=== PATIENT | male | born 1960 | race Caucasian/White ===

== ENCOUNTER 2016-07-12 11:32 | Emergency (ER) | payer BC, OTHER ==
[2016-07-12 11:54] VITALS: BP 149/88; PULSE 80; TEMP 98.2; BMI 31.0
--- NOTE | 2016-07-12 12:17 | PDOC ---
History of Present Illness - General Chief Complaint: Injury Stated Complaint: ?long bone fx LT ANKLE PAIN Time Seen by Provider: 07/12/16 11:56 History Source: Patient Exam Limitations: No Limitations - History of Present Illness Initial Comments: 07/12/16 13:08 CC pain to left ankle and hand post fall on ice today Occurred: reports: just prior to arrival Severity: reports: mild Pain Location: reports: lower extremity, upper extremity Method of Injury: Yes: direct blow, fall Loss of Consciousness: no loss of consciousness Past History - Past Medical History Allergies/Adverse Reactions: Allergies Allergy/AdvReac Type Severity Reaction Status Date / Time No Known Allergies Allergy Verified 07/12/16 11:51 Home Medications: Ambulatory Orders NK [No Known Home Medication] 07/12/16 HTN: Yes Hypercholesterolemia: Yes - Psycho/Social/Smoking Cessation Hx Anxiety: No Suicidal Ideation: No Smoking History: Current every day smoker Have you smoked in the past 12 months: Yes Number of Cigarettes Smoked Daily: 20 Information on smoking cessation initiated: Yes 'Breaking Loose' booklet given: 07/12/16 Hx Alcohol Use: No Drug/Substance Use Hx: No Substance Use Type: None Review of Systems - Review of Systems Constitutional: No: Chills, Fever, Malaise HEENTM: No: Symptoms Reported Respiratory: No: Symptoms reported, Cough Musculoskeletal: Yes: Joint Pain. No: Joint Swelling, Muscle Pain Integumentary: No: Symptoms Reported, Bruising, Erythema Neurological: No: Symptoms reported, Numbness, Paresthesia, Tingling *Physical Exam - Vital Signs Last Vital Signs Temp Pulse Resp BP Pulse Ox 98.2 F 80 18 149/88 100 07/12/16 11:51 07/12/16 11:51 07/12/16 11:51 07/12/16 11:51 07/12/16 11:51 - Physical Exam General Appearance: Yes: Appropriately Dressed. No: Apparent Distress HEENT: negative: TMs Normal, Pharynx Normal Neck: positive: Supple. negative: Tender, Rigid, Lymphadenopathy (R), Lymphadenopathy (L) Respiratory/Chest: positive: Lungs Clear Cardiovascular: positive: Regular Rhythm, Regular Rate Musculoskeletal: positive: Other (tender to lateral mall with STS; able to ambulate 3 steps; also tender left hand at thenar prominence) ED Treatment Course - RADIOLOGY Radiology Studies Ordered: Category Date Time Status ANKLE & FOOT-LEFT* [RAD] Stat Radiology 07/12/16 12:13 Ordered HAND- LEFT [RAD] Stat Radiology 07/12/16 12:13 Ordered Medical Decision Making - Medical Decision Making 07/12/16 12:16 pt refused pain meds at this time 07/12/16 13:11 xray= negative on my reading; nassar dressing applied crutches given *DC/Admit/Observation/Transfer Diagnosis at time of Disposition: Contusion of left hand Qualifiers: Encounter type: initial encounter Qualified Code(s): S60.222A - Contusion of left hand, initial encounter Strain of left ankle Qualifiers: Encounter type: initial encounter Qualified Code(s): S96.912A - Strain of unspecified muscle and tendon at ankle and foot level, left foot, initial encounter - Discharge Dispostion Disposition: HOME Condition at time of disposition: Stable Admit: No - Patient Instructions Additional Instructions: wear splint; use crutches x 3 days; ice today; advil 400mg for pain; elevate ankle - Post Discharge Activity Work/School Note: Back to Work
== END 2016-07-12 13:37 | disposition home or self-care (01) ==
LOC: JERFT 11:32
PROC: 2W3MX1Z Immobilization of Left Lower Extremity using Splint (ICD-10-PCS; principal; 2016-07-12)
DX: S60.222A Contusion of left hand, initial encounter (principal); S96.812A Strain of other specified muscles and tendons at ankle and foot level, left foot, initial encounter; W00.0XXA Fall on same level due to ice and snow, initial encounter; Y93.89 Activity, other specified; Y92.89 Other specified places as the place of occurrence of the external cause; Y99.8 Other external cause status
CPT/HCPCS: 73130-TC-LT; 73610-TC-LT; 73630-TC-LT; 99281-25

== ENCOUNTER 2017-08-05 08:34 | Day surgery (SDC) | payer BC, OTHER ==
[2017-08-01 15:03] VITALS: BMI 30.2
[2017-08-05] MEDS ORDERED: ROPIVACAINE HCL 0.5% 30ML VIAL ONE (09:35)
[2017-08-05] MEDS ORDERED: MIDAZOLAM HCL 2 MG/2 ML SINGLE DOSE VIAL ONE (09:35)
[2017-08-05] MEDS ORDERED: EPINEPHrine 1:1,000 1 MG/1 ML - 30ML VIAL (INJECTION) ONE (09:56)
[2017-08-05] MEDS ORDERED: BUPIVACAINE HCL/PF 2.5 MG/ML - 30 ML VIAL IJ ONE (11:07)
[2017-08-05] MEDS ORDERED: ceFAZolin SODIUM 1 GM VIAL ONE (11:29)
[2017-08-05] MEDS ORDERED: ONDANSETRON 4 MG/2 ML VIAL ONE (11:31)
[2017-08-05] MEDS ORDERED: DEXAMETHASONE SOD PHOSPHATE 4 MG/1 ML VIAL ONE (11:31)
[2017-08-05] MEDS ORDERED: PROPOFOL 20 ML ONE (11:36)
[2017-08-05] MEDS ORDERED: ONDANSETRON 4 MG/2 ML VIAL IVPUSH PRN (12:04)
[2017-08-05] MEDS ORDERED: BUPIVACAINE HCL/PF 0.25% (2.5MG/ML) 10 ML VIAL IJ ONE (12:12)
[2017-08-05] MEDS ORDERED: LACTATED RINGERS SOLUTION 1,000 ML IV SCH (12:15)
[2017-08-05 14:58] VITALS: TEMP 97.9
[2017-08-05 15:03] VITALS: BP 139/86; PULSE 90
--- NOTE | 2017-08-08 15:25 | OP ---
DATE OF OPERATION: 08/05/2017 SURGEON: Anand Cazares MD SALESPERSON SURGICAL APPLIANCES: KELLI Casey PREOPERATIVE DIAGNOSIS: 1. Left shoulder adhesive capsulitis. 2. Left shoulder impingement syndrome. 3. Left shoulder acromioclavicular degenerative joint disease. 4. Left shoulder /synovitis. 5. Left shoulder long head biceps tendon dislocation with tearing. POSTOPERATIVE DIAGNOSIS: 1. Left shoulder adhesive capsulitis. 2. Left shoulder impingement syndrome. 3. Left shoulder acromioclavicular degenerative joint disease. 4. Left shoulder /synovitis. 5. Left shoulder long head biceps tendon dislocation with tearing. PROCEDURE: 1. Left shoulder arthroscopy with lysis and resection of adhesions, CPT code 70042. 2. Left shoulder arthroscopy with subacromial decompression, CPT code 81071. 3. Left shoulder arthroscopy with resection of the subclavicular acromioclavicular joint, CPT code 17984. 4. Left shoulder arthroscopy and debridement, CPT code 09154. 5. Open biceps tendon release. FINDINGS: 1. Glenohumeral joint with synovitis. 2. Antegrade 2-3 cartilage injury to glenoid humerus. 3. Biceps tendon dislocation of its groove with tearing along the tendinous portion. 4. Partial rotator cuff tear 15%. 5. Type 2 acromial anterolateral spurring. 6. Inferior spurs to the subclavicular and acromioclavicular degenerative joint disease. 7. Superior labrum to anteroposterior extension of the biceps tendon. 8. Adhesions of subacromial space, most pronounced laterally. 9. Posterior labral fraying. PROCEDURE: Informed consent was obtained. The patient was taken to the operating room, where the upper extremity was prepped and draped in a sterile fashion. Scalene block was performed by anesthesia. Using standard arthroscopic technique, a posterior incision portal was made, which allowed for introduction of a camera into the glenohumeral joint. Under direct visualization, an anterior incision and portal was made. Extensive and thickened synovitis was debrided. All loose cartilage was debrided. Rotator cuff was identified and evaluated, as were the subacromial and bursal surfaces. The posterior incision portal was redirected to the subacromial space, where a lateral incision and portal was made. Excessive and thickened synovium was removed throughout the subacromial space including the anterior scar tissue, posterior bursal and lateral bursa. The type 2 acromion was converted to a flattened type 1, removing the anterior and lateral spurring. Accessory portal was made at the acromioclavicular joint, removing the inferior spur of the distal clavicle at the acromioclavicular joint allowing for a distal clavicle partial resection. Shoulder was once again reexamined; all impingement was removed. The shoulder was drained. A single suture was placed in all portals and a sterile dressing was placed and the patient was transferred to recovery room without complication. ADDENDUM: Patient's biceps tendon was noted to be dislocating out if its groove and causing tearing along the anterior portion of the subscapularis. A release was performed through an accessory incision, releasing it and allowing it to scar into local soft tissue. This was then debrided down to the superior labrum. ANAND CAZARES M.D. [id number]
--- NOTE | 2017-08-10 16:10 | PATH ---
Surgical Pathology Report Patient Name: CLARY NARAYAN SR Med. Rec. #: [id number] /Age/Gender: 1960 (Age: 57) / M Account: [id number] Location: [facility] AM[facility]UL[facility] Taken: 08/05/2017 Received: 08/05/2017 Reported: 08/10/2017 Physicians: Daryn Stephenson M.D. Specimen(s) Received LEFT SHOULDER SHAVINGS Clinical History Left shoulder impingement Final Diagnosis SHOULDER, LEFT, ARTHROSCOPIC SHAVINGS: FIBROSYNOVIAL TISSUE, CARTILAGE AND SKELETAL MUSCLE. Electronically Signed Alee Preston M.D. Gross Description Received in formalin, labeled "left shoulder shavings," is a 4.5 x 3.2 x 0.4 cm. aggregate of smith-yellow soft tissue fragments. A client care representative portion is submitted in one cassette. /08/08/201708/08/2017
== END 2017-08-05 14:45 | disposition home or self-care (01) ==
LOC: FASU 08:34
PROVIDERS: ATTEND Orthopaedic Surgery
PROC: 0RBK4ZZ Excision of Left Shoulder Joint, Percutaneous Endoscopic Approach (ICD-10-PCS; 2017-08-05)
PROC: 0LS40ZZ Reposition Left Upper Arm Tendon, Open Approach (ICD-10-PCS; 2017-08-05)
PROC: 0PBB4ZZ Excision of Left Clavicle, Percutaneous Endoscopic Approach (ICD-10-PCS; principal; 2017-08-05 10:30)
DX: M75.42 Impingement syndrome of left shoulder (principal); M75.02 Adhesive capsulitis of left shoulder; M19.012 Primary osteoarthritis, left shoulder; M65.812 Other synovitis and tenosynovitis, left shoulder; M24.112 Other articular cartilage disorders, left shoulder; M67.814 Other specified disorders of tendon, left shoulder
CPT/HCPCS: 88304-TC; 94760

== ENCOUNTER 2017-12-23 07:22 | Day surgery (SDC) | payer BC, OTHER ==
[2017-12-21 14:57] VITALS: BMI 29.5
[2017-12-23] MEDS ORDERED: DEXAMETHASONE SOD PHOSPHATE/PF 10 MG/ML SDV ONE (07:48)
[2017-12-23] MEDS ORDERED: BUPIVACAINE HCL/PF (5 MG/ML) 30 ML VIAL IJ ONE (07:49)
[2017-12-23] MEDS ORDERED: MIDAZOLAM HCL 2 MG/2 ML SINGLE DOSE VIAL ONE (07:49)
[2017-12-23] MEDS ORDERED: PROPOFOL 20 ML ONE ×3 (08:55)
[2017-12-23] MEDS ORDERED: DEXAMETHASONE SOD PHOSPHATE 4 MG/1 ML VIAL ONE (09:28)
[2017-12-23] MEDS ORDERED: KETOROLAC TROMETHAMINE 30 MG/1 ML VIAL ONE (09:28)
[2017-12-23] MEDS ORDERED: ceFAZolin SODIUM 1 GM VIAL ONE (09:28)
[2017-12-23] MEDS ORDERED: ONDANSETRON 4 MG/2 ML VIAL ONE (09:28)
[2017-12-23] MEDS ORDERED: LIDOCAINE HCL 1%, 10 MG/ML (20ML VIAL) ONE (10:04)
[2017-12-23] MEDS ORDERED: EPINEPHrine 1:1,000 1 MG/1 ML - 30ML VIAL (INJECTION) ONE (10:04)
[2017-12-23] MEDS ORDERED: LACTATED RINGERS SOLUTION 1,000 ML IV SCH (12:45)
[2017-12-23] MEDS ORDERED: oxyCODONE HCL 5 MG TABLET PO PRN (12:45)
[2017-12-23] MEDS ORDERED: ONDANSETRON 4 MG/2 ML VIAL IVPUSH PRN (12:45)
--- NOTE | 2017-12-23 12:49 | OP ---
DATE OF OPERATION: 12/23/2017 LOCATION: [facility]. SURGEON: Anand Cazares MD ROUTE INSPECTOR: KELLI Casey PREOPERATIVE DIAGNOSES: 1. Left shoulder adhesive capsulitis. 2. Left shoulder impingement syndrome. 3. Left shoulder superior labrum tear [id number] with synovitis. POSTOPERATIVE DIAGNOSES: 1. Left shoulder adhesive capsulitis. 2. Left shoulder impingement syndrome. 3. Left shoulder superior labrum tear [id number] with synovitis. PROCEDURE: 1. Left shoulder arthroscopy with resection of adhesions. CPT code 69191. 2. Left shoulder arthroscopy with subacromial decompression. CPT code 31513. 3. Left should arthroscopy with debridement. FINDINGS: 1. Evidence of previous arthroscopy. 2. Thickened scar tissue most pronounced across the glenohumeral joint with extensive synovitis and anterior scar tissue. 3. Previous release of biceps tendon. 4. Partial rotator cuff tear, 10%. 5. Previous subacromial decompression with minor spurring anteriorly. 6. Scar tissue subacromial space. 7. Posterior labral fraying. PROCEDURE: Informed consent was obtained. The patient was taken to the operating room, where the upper extremity was prepped and draped in a sterile fashion. A scalene block was performed by Anesthesia. Manipulation under anesthesia was allowed for full range of motion. Using standard arthroscopic technique, a posterior incision portal was made, which allowed for introduction of a camera into the glenohumeral joint. Under direct visualization, an anterior incision and portal was made. Extensive and thickened synovitis was debrided. Fraying of the labrum was debrided and the superior labrum from anterior to posterior was identified with all loose areas debrided. Any labral tears were taken to a stable rim including identified SLAP lesions. All loose cartilage was debrided. The rotator cuff was identified and evaluated, as were the subacromial and bursal surfaces. The posterior incision portal was redirected to the subacromial space, where a lateral incision and portal was made. Excessive and thickened synovium was removed throughout the subacromial space including the anterior scar tissue, posterior bursa and lateral bursa. The type 2 acromion was converted to a flattened type 1, removing the anterior and lateral spurring. An accessory portal was made at the acromioclavicular joint, removing the inferior spur of the distal clavicle at the acromioclavicular joint allowing for a distal clavicle partial resection. Please note that 1cm of undersurface of clavicle was removed extending into the intra articular portion and through an accessory portal. The shoulder was once again reexamined and all impingement was removed. The shoulder was drained. A single suture was placed in all portals and a sterile dressing was placed. The patient was transferred to the recovery room without complication. The previous clavicle resection had no reoccurrence and minor scar tissue was debrided from the area without removal of bone. Also, note that patient had extensive scar tissue along the glenohumeral surface and this was debrided. Prior to surgery, passive elevation to 90, external rotation to 30, and internal rotation to 30. Post manipulation passive elevation to 180, external rotation to 80, and internal rotation to 85. ANAND CAZARES M.D. [id number]
[2017-12-23 13:02] VITALS: BP 121/80; PULSE 65; TEMP 97.9
--- NOTE | 2017-12-26 11:55 | PATH ---
Surgical Pathology Report Patient Name: CLARY NARAYAN SR [facility]. Rec. #: [id number] /Age/Gender: 1960 (Age: 57) / M Account: [id number] Location: [facility] AMBULATORY Taken: 12/23/2017 Received: 12/23/2017 Reported: 12/26/2017 Physicians: Daryn Stephenson M.D. Specimen(s) Received LEFT SHOULDER SHAVINGS Clinical History Impingement syndrome left shoulder, partial rotator cuff Final Diagnosis LEFT SHOULDER, SHAVINGS: RECENT BLOOD CLOT, SCANTY FIBROCONNECTIVE TISSUE, AND FOCAL ACUTE INFLAMMATORY EXUDATE. Electronically Signed Lizet Rachel M.D. Gross Description Received in formalin labeled "left shoulder shavings," is a 2.5 x 1.0 x 0.2 cm aggregate of red-brown blood clot admixed with minimal smith-yellow soft tissue fragments. The formalin is filtered and the specimen is entirely submitted in one cassette. /12/23/2017 saudi/12/23/2017
== END 2017-12-23 13:02 | disposition home or self-care (01) ==
LOC: FASU 07:22
PROVIDERS: ATTEND Orthopaedic Surgery
PROC: 0RBK4ZZ Excision of Left Shoulder Joint, Percutaneous Endoscopic Approach (ICD-10-PCS; principal; 2017-12-23 10:00)
DX: M75.02 Adhesive capsulitis of left shoulder (principal); M75.42 Impingement syndrome of left shoulder; M65.812 Other synovitis and tenosynovitis, left shoulder
CPT/HCPCS: 88304-TC; 94760

== ENCOUNTER 2018-03-22 09:56 | Emergency (ER) | payer BC ==
[2018-03-22 10:00] VITALS: TEMP 98.5; BMI 29.5
[2018-03-22] MEDS ORDERED: SODIUM CHLORIDE 0.9% 1000 ML INFUS.BAG IV ONE (10:15)
[2018-03-22] MEDS ORDERED: METOCLOPRAMIDE HCL INJECTION 10 MG/2 ML VIAL IVPUSH ONE (10:15)
[2018-03-22] MEDS ORDERED: ACETAMINOPHEN 1000 MG/100 ML VIAL (NON FORMULARY) IVPB ONE (10:16)
[2018-03-22] MEDS ORDERED: ACETAMINOPHEN INJECTION 100 ML IVPB ONE (10:24)
[2018-03-22 10:29] LABS: BASO % 0.7 % (0-2.0); EOS % 2.5 % (0-4.5); HEMATOCRIT 42.7 % (35.4-49); HEMOGLOBIN 14.1 GM/dl (11.7-16.9); LYMPH % 21.4 % (8-40); MCH 30.5 pg (25.7-33.7); MCHC 32.9 g/dl (32.0-35.9); MEAN CELL VOLUME 92.5 fl (80-96); MEAN PLT VOLUME 7.7 fl (7.5-11.1); MONO % 5.3 % (3.8-10.2); NEUT % 70.1 % (42.8-82.8); PLATELET COUNT 338 K/MM3 (134-434); RBC 4.61 M/mm3 (4.00-5.60); WHITE BLOOD COUNT 9.7 K/mm3 (4.0-10.8)
--- NOTE | 2018-03-22 10:36 | PDOC ---
History of Present Illness - General Chief Complaint: Headache Stated Complaint: HEADACHE History Source: Patient Exam Limitations: No Limitations - History of Present Illness Initial Comments: 03/22/18 10:31 57 yo male h/o htn, here with c/o headache and slurred speech, weakness unsteady gait for several weeks. pt states he has had difficulty with gait " legs like weight" for several years" but recent headaches and speech changes have been new last few weeks. did see a nuerologist. dR. Lee, at [facility], who ordered a head ct and an MRI. was told that they were nondiagnostic. usually headache is right sided, parietal radiating back to occipital region now today it is on the left side. no n/v no change to vision . no ho migraines. did have recent blood work, unsure of results. no f/c. no h/o etoh abuse. no trauma. Past History - Past Medical History Allergies/Adverse Reactions: Allergies Allergy/AdvReac Type Severity Reaction Status Date / Time No Known Drug Allergies Allergy Verified 03/22/18 09:56 Home Medications: Ambulatory Orders Atorvastatin Ca [Lipitor] 20 mg PO HS 04/02/17 Lisinopril 10 mg PO DAILY 04/02/17 Aspirin [Aspirin EC] 81 mg PO DAILY 08/01/17 Franklin-3/Dha/Epa/Fish Oil [Franklin 3 500 Softgel] 1 each PO DAILY 08/01/17 Acetaminophen/Caffeine/Butalb [Fioricet -] 1 tab PO Q6H PRN #28 tablet MDD 4 Ibuprofen [Motrin -] 600 mg PO TID PRN #90 tablet MDD 3 03/22/18 Anemia: No Asthma: No Cancer: No Cardiac Disorders: No CVA: No COPD: Yes (DOESN'T USE INHALERS) CHF: No Dementia: No Diabetes: No GI Disorders: No Disorders: No HTN: Yes Hypercholesterolemia: Yes Liver Disease: No Seizures: No Thyroid Disease: No - Surgical History Abdominal Surgery: No Appendectomy: No Cardiac Surgery: No Cholecystectomy: No Lung Surgery: Yes (1979 DURING RIB RESECTION,HAD COLLAPSED LUNG-OSMIOPHILIC GRANULOMA REMOVED) Neurologic Surgery: No Orthopedic Surgery: Yes (RIGHT SHOULDER SX 2013) - Suicide/Smoking/Psychosocial Hx Smoking History: Current every day smoker Have you smoked in the past 12 months: Yes Number of Cigarettes Smoked Daily: 20 Information on smoking cessation initiated: Yes 'Breaking Loose' booklet given: 03/22/18 Hx Alcohol Use: No Drug/Substance Use Hx: Yes Substance Use Type: Alcohol Hx Substance Use Treatment: No Review of Systems - Review of Systems Constitutional: No: Chills, Diaphoresis, Fever HEENTM: No: Eye Pain Respiratory: No: Cough, Orthopnea, Shortness of Breath Cardiac (ROS): No: Chest Pain, Edema Integumentary: No: Bruising, Change in Color Neurological: Yes: Headache, Weakness, Ataxia All Other Systems: Reviewed and Negative *Physical Exam - Vital Signs Last Vital Signs Temp Pulse Resp BP Pulse Ox 98.5 F 102 H 16 161/115 H 99 03/22/18 09:56 03/22/18 09:56 03/22/18 09:56 03/22/18 09:56 03/22/18 09:56 - Physical Exam Comments: 03/22/18 10:34 awake alert lungs clear bilaterally heart rrr nomrg abd soft nt obese. nuero speech slow, but clear. facies mild right eyelid droop, eomi. perrl. otherwise CN intact. . finger to nose some dysdiadokinesia right > left. negative romberg. gait normal. strength 5/5. skin warm and dry 03/22/18 11:42 ED Treatment Course - LABORATORY CBC & Chemistry Diagram: 03/22/18 10:23 03/22/18 10:23 - RADIOLOGY Radiology Studies Ordered: Category Date Time Status HEAD CT WITHOUT CONTRAST [CT] Stat CT Scan 03/22/18 10:31 Ordered Medical Decision Making - Medical Decision Making 03/22/18 10:36 differential diagnosis: hyponatremia, anemia, other electrolyte abnormality, sxs hypertension, folate difficiency, syphillis, cva less likely as pt had recent mri. due to change in headache, elevated bp, will order head ct. iv hydration, reglan tylenol reassess. will try to contact pt pcp and nuerologist for more information per pt consent regardign recent mri. 03/22/18 11:22 pt labs unremarkable. tsh lyme and rpr pending. ct head no acute disease process. pt with tearing in left eye, consider cluster headache? will place on 2 L oxygen. 03/22/18 11:41 d/w pt neurologist dr. delong who states the mri was negative for anything acute, only showing microvascular ischemic changes. lp discussed, pt no white count no fever. still pending cervical spine mri however anatomically would not explain pt speech changes. or droopy eye lid. *DC/Admit/Observation/Transfer Diagnosis at time of Disposition: Headache - Discharge Dispostion Disposition: HOME Condition at time of disposition: Improved - Prescriptions Prescriptions: Acetaminophen/Caffeine/Butalb [Fioricet -] 1 tab PO Q6H PRN #28 tablet MDD 4 PRN Reason: Pain Ibuprofen [Motrin -] 600 mg PO TID PRN #90 tablet MDD 3 PRN Reason: Pain - Referrals - Patient Instructions Printed Discharge Instructions: Cluster Headache Additional Instructions: you should follow up with your neurologist call dr. Macdonald to schedule. you may also folllow up with dr. reyes, see referral infomration for followup and call to schedule. you can take fiorecet for severe headache, every 6 hrs as needed. you can also take motrin 600 mg every 8 hrs as needed for pain. return for any concern or worsening symptoms arm or leg weakness or change in mental status. - Post Discharge Activity
[2018-03-22 10:53] LABS: ALK PHOS 54 U/L (32-92); ANION GAP 6 MMOL/L (8-16); BILIRUBIN,TOTAL 0.4 mg/dl (0.2-1.0); BLOOD UREA NITROGEN 15 mg/dl (7-18); CHLORIDE 102 mmol/L (98-107); CO2 25 mmol/L (22-28); CREATININE 0.9 mg/dl (0.6-1.3); GLUCOSE,RANDOM 111 mg/dl (74-106); POTASSIUM 3.9 mmol/L (3.5-5.1); SGOT/AST 24 U/L (10-42); SGPT/ALT 29 U/L (10-40); SODIUM 133 mmol/L (136-145); TOT PROT 6.9 g/dl (6.4-8.3)
[2018-03-22] MEDS ORDERED: KETOROLAC TROMETHAMINE 15 MG/ML VIAL IVPUSH ONE (11:23)
[2018-03-22] MEDS ORDERED: KETOROLAC TROMETHAMINE 15 MG/ML VIAL ONE (11:25)
[2018-03-22] MEDS ORDERED: ACETAMINOPHEN/CAFFEINE/BUTALBITAL 1 TAB PO ONE (11:40)
[2018-03-22] MEDS ORDERED: ACETAMINOPHEN/CAFFEINE/BUTALBITAL 1 TAB ONE (11:41)
[2018-03-22 12:17] VITALS: BP 139/90; PULSE 79
== END 2018-03-22 12:17 | disposition home or self-care (01) ==
LOC: FER 09:56
PROC: 3E0337Z Introduction of Electrolytic and Water Balance Substance into Peripheral Vein, Percutaneous Approach (ICD-10-PCS; principal; 2018-03-22)
PROC: 3E033NZ Introduction of Analgesics, Hypnotics, Sedatives into Peripheral Vein, Percutaneous Approach (ICD-10-PCS; 2018-03-22)
PROC: 3E033GC Introduction of Other Therapeutic Substance into Peripheral Vein, Percutaneous Approach (ICD-10-PCS; 2018-03-22)
PROC: 3E0333Z Introduction of Anti-inflammatory into Peripheral Vein, Percutaneous Approach (ICD-10-PCS; 2018-03-22)
DX: R26.81 Unsteadiness on feet (principal); R51 Headache
CPT/HCPCS: 36415; 70450-TC; 80053; 82746; 84443; 85025; 86593; 86618; 99283-25; J0131; J7030

== ENCOUNTER 2020-07-12 10:23 | Emergency (ER) | payer BC, OTHER ==
[2020-07-12 10:39] VITALS: TEMP 97.8; BMI 35.4
[2020-07-12 11:32] LABS: NEUT % 63.4 % (42.8-82.8)
[2020-07-12 11:34] LABS: BASO % 2.5 % (0-2.0); EOS % 3.4 % (0-4.5); HEMOGLOBIN 13.5 GM/dl (11.7-16.9); LYMPH % 23.9 % (8-40); MCH 30.9 pg (25.7-33.7); MCHC 33.6 g/dl (32.0-35.9); MEAN CELL VOLUME 91.7 fl (80-96); MEAN PLT VOLUME 7.6 fl (7.5-11.1); MONO % 6.8 % (3.8-10.2); PLATELET COUNT 284 K/MM3 (134-434); RBC 4.36 M/mm3 (4.00-5.60); RDW 11.8 % (11.9-15.9); WHITE BLOOD COUNT 6.2 K/mm3 (4.0-10.8)
[2020-07-12 11:37] LABS: ACTIVATED PTT 28.1 SECONDS (25.2-36.5)
[2020-07-12 11:40] LABS: ALBUMIN 4.3 g/dl (3.4-5.0); ALK PHOS 43 U/L (45-117); ANION GAP 11 MMOL/L (8-16); BILIRUBIN,TOTAL 0.4 mg/dl (0.2-1); CALCIUM 8.8 mg/dl (8.5-10); CHLORIDE 103 mmol/L (98-107); CO2 21 mmol/L (21-32); GLUCOSE,RANDOM 151 mg/dl (74-106); LDH 129 U/L (84-246); POTASSIUM 3.8 mmol/L (3.5-5.1); SGOT/AST 29 U/L (15-37); SGPT/ALT 38 U/L (13-61); SODIUM 135 mmol/L (136-145); TOT PROT 6.9 g/dl (6.4-8.2)
[2020-07-12 11:47] LABS: INR 1.08 (0.82-1.09)
[2020-07-12] MEDS ORDERED: ALBUTEROL SO4 2.5/IPRATROPIUM 0.5 INH SOL 3 ML VIAL.NEB. NEB ONE ×2 (11:54→12:02)
[2020-07-12] MEDS ORDERED: LACTATED RINGERS SOLUTION 1,000 ML/1,000 ML INFUS.BAG IV SCH (12:00)
[2020-07-12 15:35] VITALS: BP 122/69; PULSE 88
== END 2020-07-12 15:35 | disposition home or self-care (01) ==
LOC: FER 10:23
PROC: 3E0F7GC Introduction of Other Therapeutic Substance into Respiratory Tract, Via Natural or Artificial Opening (ICD-10-PCS; principal; 2020-07-12)
DX: R06.00 Dyspnea, unspecified (principal)
CPT/HCPCS: 36415; 71045-TC-FY; 80053; 81003; 81015; 82550; 82728; 83605; 83615; 83880; 84484; 85025; 85379; 85610; 85730; 86140; 87040; 87086; 87804; 93005; 99285-25; C9803; U0003

== ENCOUNTER 2020-10-08 13:15 | Emergency (ER) | payer BC, OTHER ==
[2020-10-08 13:34] VITALS: TEMP 98.5; BMI 31.0
[2020-10-08] MEDS ORDERED: ACETAMINOPHEN 325 MG TABLET (FP) PO ONE (14:41)
[2020-10-08] MEDS ORDERED: ACETAMINOPHEN 325 MG TABLET (FP) ONE (14:46)
[2020-10-08] MEDS ORDERED: IBUPROFEN 400 MG TABLET (FP) PO ONE ×2 (14:46)
[2020-10-08 16:32] LABS: BASO % 1.2 % (0-2.0); EOS % 4.2 % (0-4.5); HEMATOCRIT 35.7 % (35.4-49); LYMPH % 22.3 % (8-40); MCHC 33.7 g/dl (32.0-35.9); MEAN CELL VOLUME 91.9 fl (80-96); MONO % 4.9 % (3.8-10.2); NEUT % 67.4 % (42.8-82.8); PLATELET COUNT 261 K/MM3 (134-434); RBC 3.88 M/mm3 (4.00-5.60); RDW 12.9 % (11.9-15.9); WHITE BLOOD COUNT 8.7 K/mm3 (4.0-10.0)
[2020-10-08 16:57] LABS: CHLORIDE 105 mmol/L (98-107); SODIUM 136 mmol/L (136-145)
[2020-10-08 16:59] LABS: CALCIUM 8.7 mg/dL (8.5-10.1)
[2020-10-08 17:00] LABS: ALBUMIN 3.6 g/dl (3.4-5.0); ANION GAP 7 MMOL/L (8-16); BLOOD UREA NITROGEN 17.6 mg/dL (7-18); CO2 24 mmol/L (21-32); GLUCOSE,RANDOM 187 mg/dL (74-106)
[2020-10-08 17:03] LABS: CREATININE 0.9 mg/dL (0.55-1.3); SGOT/AST 11 U/L (15-37); SGPT/ALT 25 U/L (13-61)
[2020-10-08 17:05] LABS: TOT PROT 6.6 g/dl (6.4-8.2)
[2020-10-08 17:06] LABS: ALK PHOS 57 U/L (45-117)
[2020-10-08 17:08] LABS: BILIRUBIN,TOTAL 0.3 mg/dL (0.2-1)
[2020-10-08 18:56] VITALS: BP 116/69; PULSE 83
== END 2020-10-08 20:42 | disposition home or self-care (01) ==
LOC: JERFT 13:15
DX: M54.6 Pain in thoracic spine (principal)
CPT/HCPCS: 36415; 71046-TC-FY; 80053; 84484; 85025; 93005; 93010; 99285-25

== ENCOUNTER 2020-10-15 16:45 | Emergency (ER) | payer BC, OTHER ==
[2020-10-15 16:54] VITALS: BMI 31.0
[2020-10-15 18:39] LABS: BASO % 0.9 % (0-2.0); EOS % 3.8 % (0-4.5); HEMOGLOBIN 12.6 GM/dL (11.7-16.9); LYMPH % 23.7 % (8-40); MEAN CELL VOLUME 91.1 fl (80-96); MEAN PLT VOLUME 7.8 fl (7.5-11.1); MONO % 7.8 % (3.8-10.2); NEUT % 63.8 % (42.8-82.8); PLATELET COUNT 347 K/MM3 (134-434); RBC 4.06 M/mm3 (4.00-5.60); RDW 12.4 % (11.9-15.9)
[2020-10-15 19:03] LABS: ALBUMIN 4.1 g/dl (3.4-5.0); BLOOD UREA NITROGEN 22.4 mg/dL (7-18); CALCIUM 9.6 mg/dL (8.5-10.1)
[2020-10-15 19:06] LABS: CREATININE 0.9 mg/dL (0.55-1.3)
[2020-10-15 19:08] LABS: BILIRUBIN,TOTAL 0.3 mg/dL (0.2-1); TOT PROT 7.3 g/dl (6.4-8.2)
[2020-10-15 19:37] LABS: N-TERMINAL BNP 9.4 pg/ml (5-125)
[2020-10-15 22:11] VITALS: BP 136/78; PULSE 76; TEMP 98.6
== END 2020-10-15 21:45 | disposition home or self-care (01) ==
LOC: JER 16:45
DX: R91.1 Solitary pulmonary nodule (principal); R60.9 Edema, unspecified; J44.9 Chronic obstructive pulmonary disease, unspecified
CPT/HCPCS: 36415; 71275-TC; 80053; 83880; 85025; 93970-TC; 99285-25; Q9967

== ENCOUNTER 2021-01-10 11:19 | Emergency (ER) | payer BC, OTHER ==
[2021-01-10 11:26] VITALS: BP 126/80; PULSE 102; TEMP 98; BMI 31.7
[2021-01-10] MEDS ORDERED: ACETAMINOPHEN 500 MG TABLET (FP) PO ONE (11:31)
[2021-01-10] MEDS ORDERED: ACETAMINOPHEN 325 MG TABLET (FP) ONE (12:23)
[2021-01-10] MEDS ORDERED: diazePAM 5 MG TABLET PO ONE (13:33)
[2021-01-10] MEDS ORDERED: LIDOCAINE 5% TOPICAL PATCH TP ONE (13:33)
[2021-01-10] MEDS ORDERED: LIDOCAINE 5% TOPICAL PATCH ONE (13:42)
[2021-01-10] MEDS ORDERED: diazePAM 5 MG TABLET ONE (13:42)
[2021-01-10 15:06] LABS: URINE APPEARANCE CLEAR; URINE BILIRUBIN NEGATIVE (NEGATIVE); URINE COLOR YELLOW; URINE GLUCOSE (UA) NEGATIVE (NEGATIVE); URINE KETONE NEGATIVE (NEGATIVE); URINE LEUK ESTERASE NEGATIVE (NEGATIVE); URINE NITRITE NEGATIVE (NEGATIVE); URINE PROTEIN NEGATIVE (NEGATIVE); URINE UROBILINOGEN 0.2 mg/dL (0.2-1.0)
[2021-01-10 16:39] LABS: BASO % 0.6 % (0-2.0); EOS % 1.9 % (0-4.5); HEMATOCRIT 34.7 % (35.4-49); HEMOGLOBIN 12.1 GM/dL (11.7-16.9); LYMPH % 18.2 % (8-40); MCHC 34.8 g/dl (32.0-35.9); MEAN CELL VOLUME 89.2 fl (80-96); MEAN PLT VOLUME 7.3 fl (7.5-11.1); MONO % 7.6 % (3.8-10.2); NEUT % 71.7 % (42.8-82.8); PLATELET COUNT 280 10^3/uL (134-434); RBC 3.89 M/mm3 (4.00-5.60); RDW 13.5 % (11.9-15.9); WHITE BLOOD COUNT 9.4 K/mm3 (4.0-10.0)
[2021-01-10 17:00] LABS: CHLORIDE 102 mmol/L (98-107); SODIUM 136 mmol/L (136-145)
[2021-01-10 17:02] LABS: ALBUMIN 4.1 g/dl (3.4-5.0); ANION GAP 9 MMOL/L (8-16); BLOOD UREA NITROGEN 20.5 mg/dL (7-18); CALCIUM 8.6 mg/dL (8.5-10.1); CO2 26 mmol/L (21-32)
[2021-01-10 17:03] LABS: GLUCOSE,RANDOM 109 mg/dL (74-106)
[2021-01-10 17:05] LABS: SGOT/AST 20 U/L (15-37); SGPT/ALT 38 U/L (13-61)
[2021-01-10 17:06] LABS: CREATININE 0.9 mg/dL (0.55-1.3)
[2021-01-10 17:07] LABS: BILIRUBIN,TOTAL 0.4 mg/dL (0.2-1); TOT PROT 6.9 g/dl (6.4-8.2)
[2021-01-10 17:08] LABS: ALK PHOS 51 U/L (45-117)
[2021-01-10 17:10] LABS: N-TERMINAL BNP 45.6 pg/ml (5-125)
[2021-01-10] MEDS ORDERED: LIDOCAINE PATCH REMOVAL MC SCH (22:00)
== END 2021-01-10 17:29 | disposition home or self-care (01) ==
LOC: JER 11:19
DX: M54.6 Pain in thoracic spine (principal); G89.29 Other chronic pain
CPT/HCPCS: 36415; 71046-TC-FY; 80053; 81003; 82550; 82553; 83880; 84484; 85025; 87086; 93005; 93010; 99284-25; C9803; U0003; U0005

== ENCOUNTER 2021-01-11 08:40 | Inpatient (IN) | payer BC, OTHER ==
[2021-01-11 08:50] VITALS: BMI 31.7
[2021-01-11] MEDS ORDERED: KETOROLAC TROMETHAMINE 30 MG/1 ML VIAL IM ONE ×2 (10:06→14:00)
[2021-01-11] MEDS ORDERED: LIDOCAINE 5% TOPICAL PATCH TP ONE (10:07)
[2021-01-11] MEDS ORDERED: KETOROLAC TROMETHAMINE 30 MG/1 ML VIAL ONE (10:35)
[2021-01-11] MEDS ORDERED: LIDOCAINE 5% TOPICAL PATCH ONE (10:35)
[2021-01-11] MEDS ORDERED: AZITHROMYCIN IVPB 500 MG in DEXTROSE 5%-WATER - 250 ML IVPB ONE (11:43)
[2021-01-11] MEDS ORDERED: CEFTRIAXONE 1,000 MG in DEXTROSE 5%-WATER - 50 ML IVPB ONE (11:43)
[2021-01-11 11:44] LABS: ARTERIAL BLD GAS O2 SATURATION 94.8 % (95-98); ARTERIAL BLOOD GAS BASE EXCESS -2.2 mmol/L (-2-2); ARTERIAL BLOOD GAS PO2 75.1 mmHg (80-100); ARTERIAL BLOOD GAS pH 7.375 (7.350-7.450)
[2021-01-11 11:45] LABS: ALLENS TEST POSITIVE
[2021-01-11] MEDS ORDERED: CEFTRIAXONE 1 GM/50 ML BAG ONE (12:32)
[2021-01-11] MEDS ORDERED: AZITHROMYCIN IVPB 500 MG/250 ML BAG IVPB ONE (12:33)
[2021-01-11 12:35] LABS: BASO % 0.6 % (0-2.0); EOS % 0.5 % (0-4.5); HEMATOCRIT 34.9 % (35.4-49); HEMOGLOBIN 12.1 GM/dL (11.7-16.9); LYMPH % 12.9 % (8-40); MCH 31.5 pg (25.7-33.7); MCHC 34.6 g/dl (32.0-35.9); MEAN PLT VOLUME 7.7 fl (7.5-11.1); MONO % 4.9 % (3.8-10.2); NEUT % 81.1 % (42.8-82.8); PLATELET COUNT 283 10^3/uL (134-434); RBC 3.83 M/mm3 (4.00-5.60); RDW 13.7 % (11.9-15.9); WHITE BLOOD COUNT 8.7 K/mm3 (4.0-10.0)
[2021-01-11 12:55] LABS: CALCIUM 8.9 mg/dL (8.5-10.1)
[2021-01-11 12:56] LABS: ALBUMIN 4.3 g/dl (3.4-5.0); BLOOD UREA NITROGEN 32.7 mg/dL (7-18)
[2021-01-11 12:59] LABS: CREATININE 1.1 mg/dL (0.55-1.3)
[2021-01-11 13:01] LABS: BILIRUBIN,TOTAL 0.4 mg/dL (0.2-1); TOT PROT 7.5 g/dl (6.4-8.2)
[2021-01-11] MEDS ORDERED: KETOROLAC TROMETHAMINE 15 MG/ML VIAL IVPUSH ONE (14:09)
[2021-01-11] MEDS ORDERED: KETOROLAC TROMETHAMINE 15 MG/ML VIAL ONE (15:25)
[2021-01-11] MEDS ORDERED: ALBUTEROL SO4 HFA INHALER IH PRN (16:26)
[2021-01-11] MEDS: SODIUM CHLORIDE 1,000 ML IV SCH (20:05)
[2021-01-11] MEDS ORDERED: HEPARIN NA (PORCINE) 5,000 UNITS/ML 1ML VIAL SQ SCH (22:00)
[2021-01-11] MEDS ORDERED: LIDOCAINE PATCH REMOVAL MC ONE (22:00)
[2021-01-12] MEDS ORDERED: KETOROLAC TROMETHAMINE 30 MG/1 ML VIAL IVPUSH ONE (05:50)
[2021-01-12 09:08] LABS: HEMATOCRIT 33.2 % (35.4-49); HEMOGLOBIN 11.4 GM/dL (11.7-16.9); MCH 31.2 pg (25.7-33.7); MCHC 34.5 g/dl (32.0-35.9); MEAN CELL VOLUME 90.5 fl (80-96); MEAN PLT VOLUME 7.8 fl (7.5-11.1); PLATELET COUNT 256 10^3/uL (134-434); RBC 3.67 M/mm3 (4.00-5.60); RDW 13.4 % (11.9-15.9)
[2021-01-12] MEDS ORDERED: DEXTROSE 5%-WATER - 50 ML IVPB ONE (09:20)
[2021-01-12] MEDS ORDERED: cefTRIAXone SODIUM 1 GM VIAL ONE (09:20)
[2021-01-12] MEDS: ENOXAPARIN NA (PORCINE) 40 MG/0.4 ML DISP.SYRIN SQ SCH (09:23)
[2021-01-12] MEDS: LIDOCAINE 5% TOPICAL PATCH TP SCH (09:23)
[2021-01-12] MEDS: CEFTRIAXONE 1 GM in DEXTROSE 5%-WATER - 50 ML IVPB SCH (09:23)
[2021-01-12] MEDS: TAMSULOSIN HCL 0.4 MG CAP PO SCH (09:28)
[2021-01-12] MEDS: FINASTERIDE 5 MG TABLET (FP) PO SCH (09:28)
[2021-01-12] MEDS: ACETAMINOPHEN 325 MG TABLET (FP) PO SCH ×3 (09:28→21:10)
[2021-01-12 09:38] LABS: BLOOD UREA NITROGEN 28.9 mg/dL (7-18)
[2021-01-12] MEDS: LISINOPRIL 20 MG TABLET PO SCH (11:54)
[2021-01-12] MEDS: AZITHROMYCIN IVPB 500 MG/250 ML BAG IVPB SCH (11:55)
[2021-01-12] MEDS: BACLOFEN 10 MG TABLET (FP) PO SCH ×2 (14:47→21:18)
[2021-01-12] MEDS ORDERED: ONDANSETRON 4 MG/2 ML VIAL IVPUSH PRN (16:00)
[2021-01-12] MEDS: ATORVASTATIN CA 10 MG TABLET (FP) PO SCH (21:18)
[2021-01-12] MEDS: diazePAM 2 MG TABLET PO SCH (21:18)
[2021-01-12] MEDS: LIDOCAINE PATCH REMOVAL MC SCH (21:18)
[2021-01-12] MEDS: SODIUM CHLORIDE 1,000 ML IV SCH (21:20)
[2021-01-13] MEDS: ACETAMINOPHEN 325 MG TABLET (FP) PO SCH ×4 (02:08→21:30)
[2021-01-13] MEDS: BACLOFEN 10 MG TABLET (FP) PO SCH ×4 (06:07→21:35)
[2021-01-13] MEDS ORDERED: PT OWN MED DRAWER 7, Y5N ONE ×2 (07:01→21:10)
[2021-01-13] MEDS: TAMSULOSIN HCL 0.4 MG CAP PO SCH (08:46)
[2021-01-13 09:03] LABS: BASO % 0.7 % (0-2.0); EOS % 3.3 % (0-4.5); HEMATOCRIT 31.7 % (35.4-49); LYMPH % 19.7 % (8-40); MCH 31.2 pg (25.7-33.7); MCHC 34.6 g/dl (32.0-35.9); MEAN CELL VOLUME 90.3 fl (80-96); MEAN PLT VOLUME 7.3 fl (7.5-11.1); MONO % 7.5 % (3.8-10.2); NEUT % 68.8 % (42.8-82.8); PLATELET COUNT 234 10^3/uL (134-434); RBC 3.51 M/mm3 (4.00-5.60); RDW 13.5 % (11.9-15.9); WHITE BLOOD COUNT 7.7 K/mm3 (4.0-10.0)
[2021-01-13 09:34] LABS: CALCIUM 8.1 mg/dL (8.5-10.1)
[2021-01-13 09:35] LABS: BLOOD UREA NITROGEN 19.5 mg/dL (7-18); MAGNESIUM 2.3 mg/dL (1.8-2.4)
[2021-01-13 09:38] LABS: CREATININE 0.8 mg/dL (0.55-1.3)
[2021-01-13 09:39] LABS: TOT PROT 5.7 g/dl (6.4-8.2)
[2021-01-13] MEDS ORDERED: cefTRIAXone SODIUM 1 GM VIAL ONE (09:39)
[2021-01-13] MEDS ORDERED: DEXTROSE 5%-WATER - 50 ML IVPB ONE (09:39)
[2021-01-13 09:42] LABS: BILIRUBIN,TOTAL 0.3 mg/dL (0.2-1)
[2021-01-13 09:48] LABS: ALBUMIN 3.2 g/dl (3.4-5.0)
[2021-01-13] MEDS: LIDOCAINE 5% TOPICAL PATCH TP SCH (10:05)
[2021-01-13] MEDS: FINASTERIDE 5 MG TABLET (FP) PO SCH (10:05)
[2021-01-13] MEDS: LISINOPRIL 20 MG TABLET PO SCH (10:05)
[2021-01-13] MEDS: CEFTRIAXONE 1 GM in DEXTROSE 5%-WATER - 50 ML IVPB SCH (10:06)
[2021-01-13] MEDS: ENOXAPARIN NA (PORCINE) 40 MG/0.4 ML DISP.SYRIN SQ SCH (10:06)
[2021-01-13] MEDS: AZITHROMYCIN IVPB 500 MG/250 ML BAG IVPB SCH (10:08)
[2021-01-13] MEDS: SODIUM CHLORIDE 1,000 ML IV SCH (17:25)
[2021-01-13] MEDS: LIDOCAINE PATCH REMOVAL MC SCH (21:35)
[2021-01-13] MEDS: ATORVASTATIN CA 10 MG TABLET (FP) PO SCH (21:35)
[2021-01-13] MEDS: diazePAM 2 MG TABLET PO SCH (21:35)
[2021-01-13] MEDS: QUINIDINE PO SCH ×2 (21:35→21:37)
[2021-01-13] MEDS: DEXTROMETHORPHAN PO SCH ×2 (21:35→21:37)
[2021-01-14] MEDS: ACETAMINOPHEN 325 MG TABLET (FP) PO SCH ×4 (02:05→21:35)
[2021-01-14] MEDS: BACLOFEN 10 MG TABLET (FP) PO SCH ×3 (06:13→21:35)
[2021-01-14 08:52] LABS: BASO % 0.9 % (0-2.0); EOS % 4.3 % (0-4.5); HEMATOCRIT 31.2 % (35.4-49); HEMOGLOBIN 10.6 GM/dL (11.7-16.9); LYMPH % 22.1 % (8-40); MCH 30.8 pg (25.7-33.7); MEAN CELL VOLUME 90.5 fl (80-96); MEAN PLT VOLUME 7.4 fl (7.5-11.1); MONO % 7.9 % (3.8-10.2); NEUT % 64.8 % (42.8-82.8); PLATELET COUNT 239 10^3/uL (134-434); RBC 3.45 M/mm3 (4.00-5.60); RDW 13.4 % (11.9-15.9); WHITE BLOOD COUNT 6.1 K/mm3 (4.0-10.0)
[2021-01-14] MEDS: TAMSULOSIN HCL 0.4 MG CAP PO SCH (08:55)
[2021-01-14 09:25] LABS: ALBUMIN 3.2 g/dl (3.4-5.0); BLOOD UREA NITROGEN 17.2 mg/dL (7-18); CALCIUM 8.2 mg/dL (8.5-10.1); MAGNESIUM 2.1 mg/dL (1.8-2.4)
[2021-01-14 09:28] LABS: CREATININE 0.8 mg/dL (0.55-1.3)
[2021-01-14 09:29] LABS: BILIRUBIN,TOTAL 0.3 mg/dL (0.2-1); TOT PROT 5.6 g/dl (6.4-8.2)
[2021-01-14] MEDS ORDERED: PT OWN MED DRAWER 7, Y5N ONE ×3 (09:37→18:01)
[2021-01-14] MEDS ORDERED: cefTRIAXone SODIUM 1 GM VIAL ONE (09:37)
[2021-01-14] MEDS ORDERED: DEXTROSE 5%-WATER - 50 ML IVPB ONE (09:38)
[2021-01-14] MEDS: AZITHROMYCIN IVPB 500 MG/250 ML BAG IVPB SCH (09:58)
[2021-01-14] MEDS: LIDOCAINE 5% TOPICAL PATCH TP SCH (09:58)
[2021-01-14] MEDS: CEFTRIAXONE 1 GM in DEXTROSE 5%-WATER - 50 ML IVPB SCH (09:58)
[2021-01-14] MEDS: ENOXAPARIN NA (PORCINE) 40 MG/0.4 ML DISP.SYRIN SQ SCH (09:59)
[2021-01-14] MEDS: DEXTROMETHORPHAN PO SCH (10:00)
[2021-01-14] MEDS: QUINIDINE PO SCH (10:00)
[2021-01-14] MEDS: LISINOPRIL 20 MG TABLET PO SCH (10:00)
[2021-01-14] MEDS: FINASTERIDE 5 MG TABLET (FP) PO SCH (10:00)
[2021-01-14] MEDS: LIDOCAINE PATCH REMOVAL MC SCH (21:35)
[2021-01-14] MEDS: ATORVASTATIN CA 10 MG TABLET (FP) PO SCH (21:35)
[2021-01-14] MEDS: diazePAM 2 MG TABLET PO SCH (21:36)
[2021-01-15 05:28] VITALS: BP 134/75; PULSE 72
[2021-01-15] MEDS: ACETAMINOPHEN 325 MG TABLET (FP) PO SCH ×3 (06:25→14:09)
[2021-01-15] MEDS: BACLOFEN 10 MG TABLET (FP) PO SCH ×2 (06:26→14:09)
[2021-01-15] MEDS ORDERED: DEXTROSE 5%-WATER - 50 ML IVPB ONE (09:03)
[2021-01-15] MEDS ORDERED: cefTRIAXone SODIUM 1 GM VIAL ONE (09:03)
[2021-01-15] MEDS: LISINOPRIL 20 MG TABLET PO SCH (09:10)
[2021-01-15] MEDS: TAMSULOSIN HCL 0.4 MG CAP PO SCH (09:11)
[2021-01-15] MEDS: FINASTERIDE 5 MG TABLET (FP) PO SCH (09:11)
[2021-01-15] MEDS: CEFTRIAXONE 1 GM in DEXTROSE 5%-WATER - 50 ML IVPB SCH (09:11)
[2021-01-15] MEDS: ENOXAPARIN NA (PORCINE) 40 MG/0.4 ML DISP.SYRIN SQ SCH (09:12)
[2021-01-15] MEDS: LIDOCAINE 5% TOPICAL PATCH TP SCH (09:12)
[2021-01-15] MEDS ORDERED: PT OWN MED DRAWER 7, Y5N ONE (09:23)
[2021-01-15] MEDS: AZITHROMYCIN IVPB 500 MG/250 ML BAG IVPB SCH (09:33)
[2021-01-15 09:47] LABS: BASO % 0.7 % (0-2.0); HEMOGLOBIN 11.9 GM/dL (11.7-16.9); LYMPH % 17.1 % (8-40); MCH 31.7 pg (25.7-33.7); MEAN CELL VOLUME 90.7 fl (80-96); MEAN PLT VOLUME 7.1 fl (7.5-11.1); MONO % 6.6 % (3.8-10.2); NEUT % 71.6 % (42.8-82.8); PLATELET COUNT 285 10^3/uL (134-434); RBC 3.75 M/mm3 (4.00-5.60); RDW 13.3 % (11.9-15.9); WHITE BLOOD COUNT 7.5 K/mm3 (4.0-10.0)
[2021-01-15 10:08] LABS: CALCIUM 9.2 mg/dL (8.5-10.1)
[2021-01-15 10:09] LABS: ALBUMIN 3.7 g/dl (3.4-5.0); BLOOD UREA NITROGEN 16.5 mg/dL (7-18); MAGNESIUM 2.2 mg/dL (1.8-2.4)
[2021-01-15 10:14] LABS: BILIRUBIN,TOTAL 0.4 mg/dL (0.2-1); TOT PROT 6.7 g/dl (6.4-8.2)
[2021-01-15 15:09] VITALS: TEMP 98.5
[2021-01-15] MEDS ORDERED: INSULIN (NOVOLOG) ASPART 100 UNITS/ML 10ML VIAL ONE (17:26)
== END 2021-01-15 18:53 | disposition home or self-care (01) | DRG 194 ==
LOC: JER 08:40 → JERBED 12:54 → J6S 01-12 04:06
PROVIDERS: ADMIT Internal Medicine; ATTEND Internal Medicine
DX: J18.9 Pneumonia, unspecified organism (principal); G12.23 Primary lateral sclerosis; I10 Essential (primary) hypertension; J44.9 Chronic obstructive pulmonary disease, unspecified; M54.9 Dorsalgia, unspecified; I95.9 Hypotension, unspecified; E78.5 Hyperlipidemia, unspecified
CPT/HCPCS: 36415; 36600; 71045-TC-FY; 72131-TC; 80048; 80053; 82607; 82803; 83735; 85025; 85027; 87070; 87205; 97116-GP; 97162-GP; 99285-25; C9803; J0475; U0003; U0005

== ENCOUNTER 2022-06-25 04:29 | Day surgery (SDC) | payer BC, OTHER ==
[2022-06-23 10:51] VITALS: BMI 31.2
[2022-06-25 11:54] VITALS: BP 107/55; PULSE 82; RESP 18; TEMP 98
== END 2022-06-25 11:45 | disposition home or self-care (01) ==
LOC: JASU-ENDO 04:29
PROVIDERS: ATTEND Internal Medicine Gastroenterology
PROC: 0DJD8ZZ Inspection of Lower Intestinal Tract, Via Natural or Artificial Opening Endoscopic (ICD-10-PCS; principal; 2022-06-25 10:00)
DX: Z12.11 Encounter for screening for malignant neoplasm of colon (principal)